=== PATIENT | female | born 1985 | race Caucasian/White ===

== ENCOUNTER 2024-11-10 09:17 | Emergency (ER) | payer OTHER, SELFPAY ==
[2024-11-10 09:26] VITALS: BP 171/126
--- NOTE | 2024-11-10 09:52 | ED.GENMED ---
History of Present Illness
General
Chief Complaint: Headache
Time Seen by Provider: 11/10/24 09:32
History of Present Illness
History of Present Illness:
Patient is a 39-year-old woman history of migraines presenting to the emergency department with a migraine. Patient states that since last week she has had a right-sided headache that is throbbing with associated photophobia. No vision changes
nausea vomiting numbness tingling or weakness. This does feel similar to her prior headaches. She has tried her abortive medications. Her neurologist did start her on a steroid pack 3 days ago. Symptoms have still persisted so she came into the
emergency department for further evaluation. No recent trauma. No fevers chills. No neck stiffness.
Phy Exam
Physical Exam
Physical Exam:
GENERAL: in no acute distress, appears well and comfortable
HEENT: normocephalic, extraocular movements intact, moist oral mucosa
NECK: normal inspection, full range of motion
RESPIRATORY: no respiratory distress, clear to auscultation bilaterally
CARDIOVASCULAR: regular rate and rhythm
ABDOMEN/: soft, non-distended, non-tender to palpation, no rebound or guarding
EXTREMITIES: non-tender, no edema/swelling
NEUROLOGIC: awake and alert, moves all extremities, no motor or sensory deficits
SKIN: warm
Course
Orders/Labs/Results
Orders:
Orders
11/10/24 09:51
Diphenhydramine [Benadryl] 25 mg IV NOW STA
Ketorolac [Toradol] 15 mg IV NOW STA
Metoclopramide [Reglan] 10 mg IV NOW STA
Test Result ONCE
11/10/24 11:39
0.9% Sodium Chloride 1000 ml [Nss] 1,000 ml IV BOLUS
11/10/24 11:44
, Urine Qualitative Screen [HCG, Urine Qualitative Screen] Urgent
Date Specimen was Collected: 11/10/24
Time Specimen was Collected: 11:36
11/10/24 11:58
Valproate Sodium [Depacon] 500 mg 0.9% Sodium Chloride 50 ml [Nss] 50 ml IV NOW
Vital Signs
Initial and Last Documented VS:
Initial Vital Signs
Temp Pulse Resp BP Pulse Ox
98.3 F 112 18 171/126 99
11/10/24 09:26 11/10/24 09:26 11/10/24 09:26 11/10/24 09:26 11/10/24 09:26
Last Documented Vital Signs
Temp Pulse Resp BP Pulse Ox
98.3 F 112 18 148/108 99
11/10/24 09:26 11/10/24 09:26 11/10/24 09:26 11/10/24 12:00 11/10/24 09:26
MDM/Problems Addressed
Differential Diagnosis Includes:
Patient is a 39-year-old woman with history of migraines presenting to the emergency department the headache for the past week that has not been relieved by her abortive medications as well as a steroid pack. Vitals are notable for hypertension and
exam shows no neurodeficits. Likely migraine headache. No red flags and neuroexam without any meningismus or focal neurofindings. History and exam not consistent with intracranial bleed or temporal arteritis. Will check test and give
migraine cocktail. Consider obtaining CT scan however after shared decision making we will hold off at this time. Will check test.
*Critical Care Note
Total Time (30-74mins, 75-104mins- exclusive of procedures): Not Applicable
Update Note
Update Note:
On reevaluation headache has slightly improved though is still 8 out of 10. Will with Depakote.
On reevaluation patient states that the headache has drastically improved. She is texting on her cell phone. Will discharge patient at this time. Patient advised to follow-up with her neurologist.
ED Attending Note
-
Portions of this chart may have been created with voice recognition software.� Occasional wrong word or��sound alike� substitutions may have occurred due to the inherent limitations of voice recognition software.
Discharge Plan
Departure
Patient Disposition: Home (Routine Discharge)
Date of Disposition: 11/10/24
Time of Disposition: 13:26
Patient with high blood pressure during this ER visit?: No
Discharge Problem:
Headache
Instructions: Migraines (DC)
Referrals:
Fadumo Hsu DO [Family Provider] -
Interventions
Interventions:
*Risk Screen - Suicide Last Done: 11/10/24 09:26
*General Assessment Last Done: 11/10/24 09:26
*Neglect/Abuse Screening Last Done: 11/10/24 09:26
*ED COVID-19 Vaccine History Last Done: 11/10/24 12:29
ED- Neurological Assessment Last Done: 11/10/24 12:29
Discharge Date and Time
Print Language: MICRONESIAN
[2024-11-10] MEDS: REGLAN 10 MG IV (10:06)
[2024-11-10] MEDS: BENADRYL 25 MG IV (10:08)
[2024-11-10] MEDS: TORADOL 15 MG IV (10:08)
[2024-11-10] MEDS: NSS 1000 IV (11:54)
[2024-11-10 12:00] VITALS: BP 148/108
[2024-11-10 12:03] LABS: HCG, Urine Qualitative Screen Negative
[2024-11-10] MEDS: DEPACON 55 MG IV (12:23)
== END 2024-11-10 13:56 | disposition home or self-care (01) ==
LOC: EMR 09:17
PROVIDERS: EMERGENCY PHYSICIAN Student in an Organized Health Care Education/Training Program; FAMILY PHYSICIAN Family Medicine
DX: R51.9 Headache, unspecified (principal); H53.149 Visual discomfort, unspecified
CPT/HCPCS: 99284; 96374; 96375 ×3; 81025

== ENCOUNTER 2024-11-12 09:33 | Emergency (ER) | payer OTHER, SELFPAY ==
[2024-11-12 09:35] VITALS: BP 175/126
--- NOTE | 2024-11-12 10:31 | ED.GENMED ---
History of Present Illness
General
Chief Complaint: Headache
Source: patient
Exam Limitations: none
Time Seen by Provider: 11/12/24 10:14
History of Present Illness
History of Present Illness:
39-year-old female presents complaining of persistent headache. She was here 2 days ago for a migraine headache. She had minimal relief with treatments 2 days ago got some rest yesterday but the headache gradually returned. She denies vision
changes nausea or vomiting. She denies any unilateral numbness or weakness or fever or rash. She has a history of migraines. She is on nortriptyline daily as well as a triptan for rescue medication. She has been using these at home without any
relief. This feels like her prior migraines. She is followed by a neurologist for her headaches.
Phy Exam
Physical Exam
Physical Exam:
General: Well-appearing female no acute respiratory distress
HEENT: Normocephalic atraumatic pupils equal round reactive to light
Heart: Regular rate and rhythm
Lungs: Clear no wheeze
Neurologic exam: Alert and oriented no facial asymmetry or slurred speech no nuchal rigidity or meningeal signs
Extremities: No cyanosis\\
Musculoskeletal exam: Cervical spine with good range of motion
Course
Orders/Labs/Results
Orders:
Orders
11/12/24 10:28
0.9% Sodium Chloride 1000 ml [Nss] 1,000 ml IV BOLUS
Dexamethasone Sod Phosphate [Decadron] 10 mg IV NOW STA
Diphenhydramine [Benadryl] 25 mg IV NOW STA
Ketorolac [Toradol] 15 mg IV NOW STA
Prochlorperazine [Compazine] 10 mg IV NOW STA
11/12/24 10:29
Test Result ONCE
11/12/24 10:39
Complete Blood Count/With Diff Urgent
Comprehensive Metabolic Panel Urgent
HCG, Serum Qualitative Screen Urgent
Sed Rate [Erythrocyte Sed Rate] Urgent
11/12/24 10:39
11/12/24 10:39
Vital Signs
Initial and Last Documented VS:
Initial Vital Signs
Temp Pulse Resp BP Pulse Ox
97.7 F 118 16 175/126 99
11/12/24 09:35 11/12/24 09:35 11/12/24 09:35 11/12/24 09:35 11/12/24 09:35
Last Documented Vital Signs
Temp Pulse Resp BP Pulse Ox
97.7 F 92 16 141/103 98
11/12/24 09:35 11/12/24 10:47 11/12/24 12:22 11/12/24 11:03 11/12/24 10:45
MDM/Problems Addressed
Differential Diagnosis Includes:
Headache gradually worsening with history of migraines. Suspect recurrent and persistent migraine. No red flags to suggest intracranial hemorrhage. Not describes sudden onset headache. There is no neurologic deficit on exam
Will treat symptomatically and reassess
*Critical Care Note
Total Time (30-74mins, 75-104mins- exclusive of procedures): Not Applicable
Update Note
Update Note:
Patient reevaluated and is feeling much better. She feels better than when she did 2 days ago when she was here. Suspect migraine. She is ambulatory expresses her desire to go home. Stable for discharge
ED Attending Note
-
Portions of this chart may have been created with voice recognition software.� Occasional wrong word or��sound alike� substitutions may have occurred due to the inherent limitations of voice recognition software.
Discharge Plan
Departure
Patient Disposition: Home (Routine Discharge)
Date of Disposition: 11/12/24
Time of Disposition: 12:45
Patient with high blood pressure during this ER visit?: No
Discharge Problem:
acute cephalgia
Instructions: Migraines (DC)
Referrals:
Fadumo Hsu DO [Family Provider] -
Activity Restrictions/Additional Instructions:
Continue current regimen of medications. Return if worse otherwise follow-up with your doctor.
Interventions
Interventions:
*Risk Screen - Suicide Last Done: 11/12/24 09:35
*General Assessment Last Done: 11/12/24 09:35
*Neglect/Abuse Screening Last Done: 11/12/24 10:14
*ED- Fall Risk Assessment Last Done: 11/12/24 10:14
*ED COVID-19 Vaccine History Last Done: 11/12/24 09:35
ED- Neurological Assessment Last Done: 11/12/24 10:14
Discharge Date and Time
Print Language: GIBRALTARIAN
[2024-11-12] MEDS: NSS 1000 IV (10:42)
[2024-11-12] MEDS: DECADRON 10 MG IV (10:42)
[2024-11-12] MEDS: COMPAZINE 10 MG IV (10:43)
[2024-11-12] MEDS: BENADRYL 25 MG IV (10:43)
[2024-11-12] MEDS: TORADOL 15 MG IV (10:44)
[2024-11-12 10:47] LABS: % Basophils 0.5 % (0-2); % Eosinophils 2.7 % (0-6); % Immature Granulocytes 0.3 % (0-0.5); % Lymphocytes 26.3 % (20.5-51.1); % Monocytes 8.3 % (1.7-9.3); % Neutrophils 61.9 % (42.2-75.2); Absolute Eosinophils 0.2 10^3/uL (0-0.7); Absolute Lymphocytes 1.9 10^3/uL (1.2-3.4); Absolute Monocytes 0.6 10^3/uL (0.1-0.6); Absolute Neutrophils 4.5 10^3/uL (1.4-6.5); Hematocrit 42.1 % (37.0-47.0); Hemoglobin 14.6 g/dL (12.0-16.0); Mean Corp Hgb Conc. 34.7 g/dL (33.0-37.0); Mean Corpuscular Volume 89.4 fL (81.0-99.0); Mean Platelet Volume 9.9 fL (7.4-10.4); Nucleated Red Blood Cells % 0 %; Platelet Count 241 10^3/uL (130-400); Red Blood Cell Count 4.71 10^6/uL (4.20-5.40); Red Cell Dist. Width 12.5 % (11.5-14.5); White Blood Cell Count 7.3 10^3/uL (4.8-10.8)
[2024-11-12 11:01] LABS: HCG, Serum Qualitative Screen Negative
[2024-11-12 11:03] VITALS: BP 141/103
[2024-11-12 11:28] LABS: ALT (SGPT) 24 U/L (0-35); AST (SGOT) 24 U/L (14-36); Albumin 3.8 g/dl (3.5-5.0); Alkaline Phosphatase 53 U/L (38-126); Blood Urea Nitrogen 9 mg/dl (7-17); Calcium 9.2 mg/dl (8.4-10.2); Carbon Dioxide 27 mmol/L (22-30); Chloride 103 mmol/L (98-107); Glucose 83 mg/dl (70-99); Potassium 4.6 mmol/L (3.5-5.1); Sodium 138 mmol/L (135-145); Total Bilirubin 0.8 mg/dl (0.2-1.3); Total Protein 6.7 g/dl (6.3-8.2); eGFR > 60.00
[2024-11-12 12:34] LABS: Erythrocyte Sed Rate 11 mm/hour (0-20)
== END 2024-11-12 13:12 | disposition home or self-care (01) ==
LOC: EMR 09:33
PROVIDERS: Physician Assistant; EMERGENCY PHYSICIAN Emergency Medicine; FAMILY PHYSICIAN Family Medicine
DX: G43.909 Migraine, unspecified, not intractable, without status migrainosus (principal)
CPT/HCPCS: 96374; 96375; 96361; 99284; 80053; 84703; 85025; 85652